=== PATIENT | female | born 1950 | race Caucasian/White ===

== ENCOUNTER → 2020-07-19 | Outpatient (CLI) | payer MEDICARE ==
--- NOTE | 2020-07-22 16:17 | RAD ---
DATE: 07/19/2020 10:33 AM EXAM: MAMMO JANIS SCREENING BILATERAL HISTORY: Screening COMPARISON: 01/19/2019 Bilateral CC and MLO views of the breasts were performed. Bilateral breast tomosynthesis was performed in CC and MLO projections. This study was interpreted with the benefit of Computerized Aided Detection (CAD). FINDINGS: Breast Density: HETERO The breast parenchyma Is heterogeneously dense, which could reduce sensitivity of mammography. Breast parenchyma level C No suspicious masses, microcalcifications or architectural distortion is present to suggest malignancy in either breast. The visualized axillae are unremarkable. IMPRESSION: No mammographic evidence of malignancy. BI-RADS CATEGORY: 1 NEGATIVE RECOMMENDED FOLLOW-UP: 12M 12 MONTH FOLLOW-UP Annual screening mammography is recommended, unless clinically indicated sooner based on symptoms or change in physical exam. PQRS compliance statement: Patient information was entered into a reminder system with a target due date for the next mammogram. Mammography is a sensitive method for finding small breast cancers, but it does not detect them all and is not a substitute for careful clinical examination. A negative mammogram does not negate a clinically suspicious finding and should not result in delay in biopsying a clinically suspicious abnormality. "Our facility is accredited by the [employer] Mammography [employer]."
== END ==
LOC: MAMMO 10:23
PROVIDERS: ATTEND Family Medicine
DX: Z12.31 Encounter for screening mammogram for malignant neoplasm of breast (principal)
CPT/HCPCS: 77063; 77067

== ENCOUNTER → 2020-09-20 | Outpatient (CLI) | payer MEDICARE ==
[~2020-09-20] MED LIST: ATOR10TA60 PO; CALC-31 PO; LACT1CAP6 PO; NAPR220C62 PO; OMEG-33 PO; TURM538C PO
== END ==
LOC: LAB 14:33
PROVIDERS: ATTEND Nurse Anesthetist, Certified Registered
DX: Z01.812 Encounter for preprocedural laboratory examination (principal); Z20.822 Contact with and (suspected) exposure to COVID-19
CPT/HCPCS: U0003

== ENCOUNTER → 2020-09-24 | Day surgery (SDC) | payer MEDICARE ==
[~2020-09-24] MED LIST changes: +IPRATRPIUM/ALBUTEROL 0.5/2.5MG 3 ML NEBU. NEB PRN; +MIDAZOLAM HCL PF 2 MG/2 ML VIAL. IV ONE; +ONDANSETRON PF 4 MG/2 ML VIAL. IV PRN; +PROPOFOL 10,000 MCG/ML (20ML) VIAL IV ONE
[2020-09-24] MEDS: IV RINGERS SOLUTION,LACTATED 1,000 ML IV SCH (09:34)
[2020-09-24 10:50] VITALS: BP 98/68
== END | disposition home or self-care (01) ==
LOC: SURG 09:15
PROVIDERS: ATTEND Emergency Medicine
DX: Z12.11 Encounter for screening for malignant neoplasm of colon (principal); Z86.010 Personal history of colon polyps; Z79.899 Other long term (current) drug therapy; Z72.89 Other problems related to lifestyle
CPT/HCPCS: G0105; J2704; J7120; 45378

== ENCOUNTER → 2020-12-31 | Outpatient (CLI) | payer MEDICARE ==
[2020-09-24 10:50] VITALS: BP 98/68
[~2020-12-31] MED LIST changes: -IPRATRPIUM/ALBUTEROL 0.5/2.5MG 3 ML NEBU. NEB PRN; -MIDAZOLAM HCL PF 2 MG/2 ML VIAL. IV ONE; -ONDANSETRON PF 4 MG/2 ML VIAL. IV PRN; -PROPOFOL 10,000 MCG/ML (20ML) VIAL IV ONE
--- NOTE | 2020-12-31 14:00 | RAD ---
EXAM: ULTRASOUND SOFT TISSUE NECK CLINICAL HISTORY: Reason: THYROID DISORDER, FULLNESS OF RT NECK / Spl. Instructions: HX OF LT LOBECTO MY APPROX 25 YEARS AGO / History: COMPARISON: None available. TECHNIQUE: Ultrasound examination of the thyroid gland was performed FINDINGS: The right thyroid lobe measures 5.7 x 2.8 x 2.4cm. The left thyroid lobe and isthmus have been surgically removed 25 years ago. There is heterogeneity of the background echotexture of the right lobe of thyroid. Within the right l obe of the thyroid, there is a heterogeneous solid circumscribed cystic and solid mass which is isoec hoic to background echotexture, wider than tall with smooth margins, and scattered punctate internal echogenic foci measuring 3.6 x 2.7 x 2.4 cm. This constitutes a TR 4 lesion for which FNA is recommen ded. There is increased color Doppler flow throughout the right thyroid lobe. No suspicious adenopath y. IMPRESSION: 1. 3.6 cm TR 4 nodule within the right lobe of the thyroid gland for which biopsy is recommended. 2. Prior surgical resection of the isthmus and left thyroid. 3. No suspicious adenopathy. Electronically signed by: Dejuan Campos MD (12/31/2020 1:57 PM) [id number]
== END ==
LOC: US 09:47
PROVIDERS: ATTEND Family Medicine
DX: E04.1 Nontoxic single thyroid nodule (principal); E07.89 Other specified disorders of thyroid
CPT/HCPCS: 76536

== ENCOUNTER → 2021-07-24 | Outpatient (CLI) | payer MEDICARE ==
[2020-09-24 10:50] VITALS: BP 98/68
--- NOTE | 2021-07-24 16:19 | RAD ---
BILATERAL SCREENING MAMMOGRAM History: Routine screening. Comparison: 07/19/2020 Technique: Routine 2D and 3D tomosynthesis digital mammogram views were obtained bilaterally. Interpr etation was assisted with the use of computer-aided detection. Findings: Breast Tissue Density B : There are scattered areas of fibroglandular density. A 0.7 cm asymmetry within the medial left breast on the CC view 7 cm from the nipple is more conspicu ous on the 2D images relative to the prior but when comparing with tomosynthesis it is unchanged. A f ew additional symmetries within both breasts have been present on comparison studies. No newly appare nt mass, architectural distortion or suspicious microcalcifications. IMPRESSION: No mammographic evidence of malignancy. Recommend routine screening mammography in one year. BI-RADS category 2: Benign findings. Patient information is entered into the reminder system with a target due date for the next screening mammogram. "Our facility is accredited by the [employer] Mammography [employer]." Electronically signed by: BOB SCHWAB MD (07/24/2021 4:17 PM) [id number]
== END ==
LOC: MAMMO 15:22
PROVIDERS: ATTEND Family Medicine
DX: Z12.31 Encounter for screening mammogram for malignant neoplasm of breast (principal)
CPT/HCPCS: 77063; 77067